=== PATIENT | female | born 1985 | race Two or more races ===

== ENCOUNTER 2021-11-19 18:04 | Emergency (ER) | payer MEDICAID, OTHER ==
[~2021-11-19] VITALS: Ht 157.5 cm; Wt 117.9 kg
[2021-11-19 18:04] VITALS: BP 139/91
== END 2021-11-19 20:42 | disposition home or self-care (01) ==
LOC: ER 18:08
DX: S93.401A Sprain of unspecified ligament of right ankle, initial encounter (principal); X50.1XXA Overexertion from prolonged static or awkward postures, initial encounter; Y93.89 Activity, other specified; Y92.89 Other specified places as the place of occurrence of the external cause; Y99.8 Other external cause status
CPT/HCPCS: 73610